=== PATIENT | female | born 1945 | race Caucasian/White ===

== ENCOUNTER → 2018-01-05 | Outpatient (CLI) | payer OTHER ==
[~2018-01-05] MED LIST: ACET325T14 PO; ATOR10TA PO; LEVO100T5 PO; LORA0.5T PO; ROLAIDS; TRIA1TAB3 PO; VENL75CA PO
== END | disposition home or self-care (01) ==
LOC: CFH 13:24
PROVIDERS: ATTEND Surgery
DX: C77.3 Secondary and unspecified malignant neoplasm of axilla and upper limb lymph nodes (principal); C50.911 Malignant neoplasm of unspecified site of right female breast
CPT/HCPCS: 77065

== ENCOUNTER → 2018-02-08 | Outpatient (CLI) | payer OTHER ==
[~2018-02-08] MED LIST changes: +ONDA8TAB9 PO; +PROC10TA78 PO; +emla cream TP
[2018-02-08 11:23] LABS: ALBUMIN 3.4 g/dL (3.4-5.0); ANION GAP 7 mmol/L (5-15); CALCIUM 9.5 mg/dL (8.5-10.1); CHLORIDE 106 mmol/L (98-107)
[2018-02-08 11:27] LABS: ALANINE AMINOTRANSFERASE 42 U/L (12-78); ALKALINE PHOSPHATASE 90 U/L (45-117); BILIRUBIN,TOTAL 0.8 mg/dL (0.2-1.0); CREATININE 0.79 mg/dL (0.55-1.02); TOTAL PROTEIN 6.7 g/dL (6.4-8.2)
== END | disposition home or self-care (01) ==
LOC: STAR 09:59
PROVIDERS: ATTEND Surgery
DX: Z01.812 Encounter for preprocedural laboratory examination (principal); I45.10 Unspecified right bundle-branch block
CPT/HCPCS: 36415; 80053; 93005

== ENCOUNTER 2018-02-15 06:12 | Day surgery (SDC) | payer OTHER ==
[~2018-02-15] VITALS: Ht 165.1 cm; Wt 90.7 kg
[2018-02-15] MEDS ORDERED: LACTATED RINGERS 1,000 ML IV SCH (06:47)
[2018-02-15] MEDS ORDERED: GABAPENTIN 300 MG CAPSULE PO ONE (07:00)
[2018-02-15] MEDS ORDERED: ACETAMINOPHEN 500 MG TABLET PO ONE (07:00)
[2018-02-15] MEDS ORDERED: SCOPOLAMINE PATCH, 1.5MG PATCH.TD72 TD ONE (07:00)
[2018-02-15] MEDS ORDERED: ONDANSETRON ODT 8 MG PO ONE (07:00)
[2018-02-15] MEDS ORDERED: ISOSULFAN BLUE 10 MG/ML, 5ML IV ONE (07:04)
[2018-02-15] MEDS ORDERED: BUPIVACAINE/PF-EPI 0.5% 1:200K ONE (07:04)
[2018-02-15 07:10] VITALS: BP 113/75
[2018-02-15] MEDS ORDERED: MIDAZOLAM 1 MG/ML, 2ML ONE (08:04)
[2018-02-15] MEDS ORDERED: FENTANYL PF 250 MCG/5ML ONE (08:04)
[2018-02-15] MEDS ORDERED: DEXAMETHASONE 4 MG/ML, 1ML ONE (08:58)
[2018-02-15] MEDS ORDERED: PROPOFOL 10 MG/ML, 20ML ONE (09:05)
[2018-02-15] MEDS ORDERED: CEFAZOLIN 1,000 MG ONE ×2 (09:05)
[2018-02-15] MEDS ORDERED: ROCURONIUM 10MG/ML,5ML ONE (09:05)
[2018-02-15] MEDS ORDERED: OXYcodone 5 MG/5 ML ORAL.SOL UDC PO PRN (10:00)
[2018-02-15] MEDS ORDERED: FENTANYL PF 100 MCG/2ML IV PRN (10:00)
[2018-02-15] MEDS ORDERED: HYDROmorphone 2 MG/ML, 1ML IV PRN (10:00)
[2018-02-15] MEDS ORDERED: LABETALOL 5MG/ML, 20ML IV PRN (10:00)
[2018-02-15] MEDS ORDERED: hydrALAzine 20 MG/ML, 1ML IV PRN (10:00)
[2018-02-15] MEDS ORDERED: MEPERIDINE/PF 25MG/0.5ML IVPush PRN (10:00)
[2018-02-15] MEDS ORDERED: PROMETHAZINE 25 MG/ML, 1ML IV PRN (10:00)
[2018-02-15] MEDS ORDERED: ONDANSETRON 2MG/ML, 2ML IV PRN (10:00)
[2018-02-15] MEDS ORDERED: NEOSTIGMINE 1 MG/ML, 10ML ONE (11:40)
[2018-02-15] MEDS ORDERED: GLYCOPYRROLATE 0.4 MG/2 ML, 2ML ONE (11:41)
[2018-02-15] MEDS ORDERED: NEOSTIGMINE 1 MG/ML, 10ML IV ONE (12:00)
[2018-02-15] MEDS ORDERED: GLYCOPYRROLATE 0.2MG/1ML, 5ML IVPush ONE (12:00)
== END 2018-02-15 16:30 | disposition home or self-care (01) ==
LOC: OUT 06:12
PROVIDERS: ATTEND Surgery
DX: C50.911 Malignant neoplasm of unspecified site of right female breast (principal); F41.9 Anxiety disorder, unspecified; E78.5 Hyperlipidemia, unspecified; E03.9 Hypothyroidism, unspecified; Z87.39 Personal history of other diseases of the musculoskeletal system and connective tissue; Z79.899 Other long term (current) drug therapy; Z98.890 Other specified postprocedural states; Z85.850 Personal history of malignant neoplasm of thyroid; Z72.89 Other problems related to lifestyle
CPT/HCPCS: 19303; 38525; 38792; 76098; 88305; 88307; 88309; A9541; C1729; J0690; J1100; J2250; J2704; J2710; J3010; J3490; J7120; Q0162

== ENCOUNTER → 2018-03-08 | Outpatient (CLI) | payer OTHER | END | disposition home or self-care (01) | LOC: ROC 09:51 | PROVIDERS: ATTEND Radiology Radiation Oncology | DX: C50.911 Malignant neoplasm of unspecified site of right female breast (principal); Z85.3 Personal history of malignant neoplasm of breast; Z90.11 Acquired absence of right breast and nipple | CPT/HCPCS: 99214; G0463 ==

== ENCOUNTER → 2018-03-23 | Outpatient (CLI) | payer OTHER ==
[~2018-03-23] MED LIST changes: +OMNIPAQUE 350 MG/ML, 75ML BOTTLE ONE
[2018-03-23 13:30] LABS: CREATININE 0.71 mg/dL (0.55-1.02)
== END | disposition home or self-care (01) ==
LOC: RAD 12:49
PROVIDERS: ATTEND Internal Medicine Hematology & Oncology
DX: R91.1 Solitary pulmonary nodule (principal); R22.2 Localized swelling, mass and lump, trunk; C50.411 Malignant neoplasm of upper-outer quadrant of right female breast; Z90.11 Acquired absence of right breast and nipple
CPT/HCPCS: 36415; 71260; 82565; Q9967

== ENCOUNTER → 2018-04-10 | Outpatient (CLI) | payer OTHER ==
[~2018-04-10] MED LIST changes: -OMNIPAQUE 350 MG/ML, 75ML BOTTLE ONE
== END | disposition home or self-care (01) ==
LOC: CFH 09:56
PROVIDERS: ATTEND Internal Medicine Hematology & Oncology
DX: Z13.820 Encounter for screening for osteoporosis (principal); M85.88 Other specified disorders of bone density and structure, other site; C50.411 Malignant neoplasm of upper-outer quadrant of right female breast
CPT/HCPCS: 77080

== ENCOUNTER → 2018-05-28 | Outpatient (CLI) | payer OTHER | END | disposition home or self-care (01) | LOC: EDSTATUS 05-27 13:06 → ROC 07:55 | PROVIDERS: ATTEND Radiology Radiation Oncology | DX: Z08 Encounter for follow-up examination after completed treatment for malignant neoplasm (principal); C50.911 Malignant neoplasm of unspecified site of right female breast | CPT/HCPCS: 99213; G0463 ==

== ENCOUNTER → 2018-08-02 | Outpatient (CLI) | payer MEDICARE, OTHER | END | disposition home or self-care (01) | LOC: ROC 07:24 | PROVIDERS: ATTEND Radiology Radiation Oncology | DX: Z08 Encounter for follow-up examination after completed treatment for malignant neoplasm (principal); C50.911 Malignant neoplasm of unspecified site of right female breast | CPT/HCPCS: 99213; G0463 ==

== ENCOUNTER → 2018-09-26 | Outpatient (CLI) | payer MEDICARE | END | disposition home or self-care (01) | LOC: PETCFH 08:51 | PROVIDERS: ATTEND Internal Medicine Hematology & Oncology | DX: C50.411 Malignant neoplasm of upper-outer quadrant of right female breast (principal) | CPT/HCPCS: 78306; A9503 ==

== ENCOUNTER 2018-10-01 12:05 | Outpatient (CLI) | payer MEDICARE ==
[2018-10-01] MEDS ORDERED: OMNIPAQUE 350 MG/ML, 100ML BOTTLE ONE (15:22)
== END 2018-10-01 23:59 | disposition home or self-care (01) ==
LOC: CFH 12:05
PROVIDERS: ATTEND Internal Medicine Hematology & Oncology
DX: C50.411 Malignant neoplasm of upper-outer quadrant of right female breast (principal); E78.5 Hyperlipidemia, unspecified; M47.814 Spondylosis without myelopathy or radiculopathy, thoracic region; M25.811 Other specified joint disorders, right shoulder; R91.1 Solitary pulmonary nodule; Z79.899 Other long term (current) drug therapy
CPT/HCPCS: 71260; 74177; 93306; Q9967

== ENCOUNTER 2018-10-25 11:13 | Observation (INO) | payer MEDICARE ==
[~2018-10-25] VITALS: Ht 167.6 cm; Wt 84.6 kg
[2018-10-25] MEDS ORDERED: ANAS1TAB PO (11:23)
[2018-10-25] MEDS ORDERED: ONDANSETRON 2MG/ML, 2ML ONE ×2 (11:24→13:53)
[2018-10-25] MEDS ORDERED: HYDROmorphone 2 MG/ML, 1ML ONE (11:25)
[2018-10-25] MEDS: HYDROmorphone 2 MG/ML, 1ML IVPush PRN ×2 (11:28→11:57)
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
--- NOTE | 2018-10-25 11:45 | NUR ---
xr to bs
--- NOTE | 2018-10-25 11:59 | NUR ---
PT MEDICATED X2 FOR PAIN. 2LNC PLACED, ALTHOUGH THERE WAS NO DECREASE IN O2 SAT. PT STATES PAIN REMAINS 10/10. VSS. EDMD PRESENT TO BS TO UPDATE ON POC. PLAN FOR PROCEDURAL SEDATION AND REDUCTION.
[2018-10-25] MEDS ORDERED: ONDANSETRON 2MG/ML, 2ML IVPush ONE ×2 (12:00→14:00)
[2018-10-25] MEDS ORDERED: SODIUM CHLORIDE FLUSH 10ML SYR IVF ONE (12:00)
[2018-10-25] MEDS ORDERED: PROPOFOL 10 MG/ML, 20ML ONE (12:03)
--- NOTE | 2018-10-25 13:07 | NUR ---
SUCCESSFUL CLOSED REDUCTION OF LEFT SHOULDER COMPLETE. REDUCTION VERIFIED BY XR. PT TOLERATED WELL. VS REMAINED STABLE THROUGHOUT PROCEDURE. VSS AT THIS TIME. PLAN TO DC WHEN PT IS ABLE.
[2018-10-25] MEDS ORDERED: PROPOFOL 10 MG/ML, 20ML IVPush ONE (13:30)
--- NOTE | 2018-10-25 13:58 | NUR ---
PT STATES NAUSEA WITH VOMITTING. EDMD NOTIFIED. ORDERS RECEVIED. PT MEDICATED PER JUL. VSS. NO NEEDS EXPRESSED. PT RESTING WTIH EYES CLOSED AT THIS TIME. WILL DC WHEN ABLE.
--- NOTE | 2018-10-25 14:50 | NUR ---
VSS. NO NEEDS EXPRESSED. PT RESTING WTIH EYES CLOSED AT THIS TIME. WILL DC WHEN ABLE.
[2018-10-25] MEDS ORDERED: PROMETHAZINE 25 MG/ML, 1ML ONE (15:45)
--- NOTE | 2018-10-25 15:49 | NUR ---
ATTEMPTED TO DC PT. PT UNABLE TO SIT UP WITHOUT N/V. EDMD NOTIFIED. NEW ORDERS RECEIVED AND MEDS ADMINISTERED. PT RESTING IN ROOM. VSS. NO NEEDS EXPRESSED. CALL LIGHT WITHIN REACH.
[2018-10-25] MEDS ORDERED: PROMETHAZINE 25 MG/ML, 1ML IM ONE (16:00)
--- NOTE | 2018-10-25 17:25 | NUR ---
PT RESTING IN ROOM. STILL REQUIRING SUPPLEMENTAL O2 TO KEEP O2 SAT >93%. ALL OTHER VSS. EXTENSIVE DISCUSSION WTIH PT REGARDING ADMIT. PT AGREES TO ADMIT AT THIS TIME.
[2018-10-25 18:23] LABS: BASOPHILS # (AUTO) 0.02 x10^3/uL (0-0.1); BASOPHILS % (AUTO) 0 % (0-1); EOSINOPHILS % (AUTO) 0 % (1-7); LYMPHOCYTES # (AUTO) 0.53 x10^3/uL (1-3.4); LYMPHOCYTES % (AUTO) 10 % (22-44); MD NO; MEAN CORPUSCULAR HEMOGLOBIN 30.7 pg (27.0-34.8); MEAN CORPUSCULAR HGB CONC 32.9 g/dL (32.4-35.8); MEAN CORPUSCULAR VOLUME 93.3 fL (80-100); MEAN PLATELET VOLUME 6.2 fL (7.4-10.4); MONOCYTES # (AUTO) 0.16 x10^3/uL (0.2-0.8); MONOCYTES % (AUTO) 3 % (2-9); NEUTROPHILS # (AUTO) 4.51 x10^3/uL (1.8-6.8); NEUTROPHILS % (AUTO) 87 % (42-75); PLATELET COUNT 196 x10^3/uL (130-400); RED BLOOD COUNT 3.99 x10^6/uL (3.82-5.3); RED CELL DISTRIBUTION WIDTH 14.1 % (9.6-15.2)
[2018-10-25] MEDS ORDERED: BISACODYL 10 MG SUPP PR PRN (18:30)
[2018-10-25] MEDS ORDERED: ONDANSETRON ODT 4 MG PO PRN (18:30)
[2018-10-25] MEDS ORDERED: POLYETHYLENE GLYCOL 17 GM PACKET PO PRN (18:30)
[2018-10-25] MEDS ORDERED: ACETAMINOPHEN 325 MG TABLET PO PRN (18:30)
[2018-10-25 18:33] LABS: ALBUMIN 3.5 g/dL (3.4-5.0); ANION GAP 8 mmol/L (5-15); CALCIUM 8.6 mg/dL (8.5-10.1); CHLORIDE 108 mmol/L (98-107); CREATININE 0.64 mg/dL (0.55-1.02)
[2018-10-25] MEDS: SODIUM CHLORIDE 0.9% 1,000 ML IV SCH (19:21)
[2018-10-25 20:09] VITALS: BP 115/61
[2018-10-25 20:17] VITALS: BP 115/61
[2018-10-25] MEDS ORDERED: ATORVASTATIN 10 MG TABLET PO SCH (21:00)
[2018-10-25] MEDS ORDERED: ANASTROZOLE 1 MG TABLET PO SCH (21:30)
[2018-10-26 01:28] VITALS: BP 115/63
[2018-10-26 07:28] VITALS: BP 113/67
[2018-10-26] MEDS: SODIUM CHLORIDE 0.9% 1,000 ML IV SCH (08:17)
[2018-10-26] MEDS ORDERED: LEVOTHYROXINE 100 MCG TABLET PO SCH (09:00)
[2018-10-26] MEDS ORDERED: TRIAMTERENE-HCTZ 37.5/25 MG TABLET PO SCH (09:00)
[2018-10-26] MEDS ORDERED: SENNA/DOCUSATE TABLET PO SCH (09:00)
[2018-10-26] MEDS ORDERED: ANASTROZOLE 1 MG TABLET PO SCH (09:00)
[2018-10-26] MEDS ORDERED: VENLAFAXINE 75 MG CAP ER PO SCH (09:00)
[2018-10-26 14:37] VITALS: BP 143/92
== END 2018-10-26 15:46 | disposition home or self-care (01) ==
LOC: ED 13:10 → INTOOBSV 17:41 → EDIP 17:41 → 3NE 18:21 → DCLOUNGE 10-26 15:20
PROVIDERS: ADMIT Internal Medicine; ATTEND Internal Medicine
DX: S43.015A Anterior dislocation of left humerus, initial encounter (principal); S43.035A Inferior dislocation of left humerus, initial encounter; I50.32 Chronic diastolic (congestive) heart failure; E78.5 Hyperlipidemia, unspecified; E03.9 Hypothyroidism, unspecified; W01.0XXA Fall on same level from slipping, tripping and stumbling without subsequent striking against object, initial encounter; Y93.9 Activity, unspecified; Y92.003 Bedroom of unspecified non-institutional (private) residence as the place of occurrence of the external cause; Z85.3 Personal history of malignant neoplasm of breast; Z92.21 Personal history of antineoplastic chemotherapy; Z90.11 Acquired absence of right breast and nipple
CPT/HCPCS: 23655; 36415; 71045; 73020; 73030; 80048; 82040; 85025; 96361; 96372; 96374; 96375; 96376; 97162; 97166; 99285; G0378; J1170; J2405; J2550; J2704; J7030

== ENCOUNTER → 2019-03-28 | Outpatient (CLI) | payer MEDICARE ==
[~2019-03-28] MED LIST changes: +ANAS1TAB PO; +LEVO75TA5 PO
== END | disposition home or self-care (01) ==
LOC: STAR 10:18
PROVIDERS: ATTEND Surgery
DX: Z01.812 Encounter for preprocedural laboratory examination (principal); C50.811 Malignant neoplasm of overlapping sites of right female breast; R94.31 Abnormal electrocardiogram [ECG] [EKG]
CPT/HCPCS: 93005

== ENCOUNTER 2019-04-04 09:28 | Day surgery (SDC) | payer MEDICARE ==
[~2019-04-04] VITALS: Ht 167.6 cm; Wt 83.3 kg
[~2019-04-04 09:28] MED LIST changes: +BUPIVACAINE/PF 0.5% ONE
[2019-04-04] MEDS ORDERED: LACTATED RINGERS 1,000 ML IV SCH ×3 (09:45→16:00)
[2019-04-04 09:59] VITALS: BP 116/67
[2019-04-04] MEDS ORDERED: ACETAMINOPHEN 500 MG TABLET PO ONE (10:00)
[2019-04-04] MEDS ORDERED: ONDANSETRON ODT 8 MG PO ONE (10:00)
[2019-04-04] MEDS ORDERED: GABAPENTIN 300 MG CAPSULE PO ONE (10:00)
[2019-04-04] MEDS ORDERED: MIDAZOLAM 1 MG/ML, 2ML ONE (11:04)
[2019-04-04] MEDS ORDERED: FENTANYL PF 250 MCG/5ML ONE (11:04)
[2019-04-04] MEDS ORDERED: PROPOFOL 50 ML ONE ×3 (11:04→13:07)
[2019-04-04] MEDS ORDERED: CEFAZOLIN 1,000 MG ONE (11:34)
[2019-04-04] MEDS ORDERED: PROPOFOL 10 MG/ML, 20ML ONE (11:45)
[2019-04-04] MEDS ORDERED: SUCCINYLCHOLINE 20 MG/ML, 10ML ONE (11:47)
[2019-04-04] MEDS ORDERED: ONDANSETRON 2MG/ML, 2ML ONE (11:48)
[2019-04-04] MEDS ORDERED: DEXAMETHASONE 4 MG/ML, 1ML ONE (11:48)
[2019-04-04] MEDS ORDERED: DIAZEPAM 5 MG/ML, 2ML IVPush PRN (12:00)
[2019-04-04] MEDS ORDERED: ONDANSETRON 2MG/ML, 2ML IV PRN (12:00)
[2019-04-04] MEDS ORDERED: OXYcodone 5 MG/5 ML ORAL.SOL UDC PO PRN (12:00)
[2019-04-04] MEDS ORDERED: FENTANYL PF 100 MCG/2ML IV PRN (12:00)
[2019-04-04] MEDS ORDERED: MIDAZOLAM 1 MG/ML, 2ML IV PRN (12:00)
[2019-04-04] MEDS ORDERED: hydrALAzine 20 MG/ML, 1ML IV PRN (12:00)
[2019-04-04] MEDS ORDERED: HYDROmorphone 2 MG/ML, 1ML IVPush PRN (12:00)
[2019-04-04] MEDS ORDERED: PROMETHAZINE 25 MG/ML, 1ML IV PRN (12:00)
[2019-04-04] MEDS ORDERED: ONDANSETRON ODT 8 MG PO PRN (12:00)
[2019-04-04] MEDS ORDERED: EPHEDRINE 50 MG/ML, 1ML IM PRN (12:00)
[2019-04-04] MEDS ORDERED: DIPHENHYDRAMINE 50 MG/ML, 1ML IVPush PRN (12:00)
[2019-04-04] MEDS ORDERED: EPHEDRINE 50 MG/ML, 1ML IVPush PRN (12:00)
[2019-04-04] MEDS ORDERED: METOPROLOL 1 MG/ML, 5ML IV PRN (12:00)
[2019-04-04] MEDS ORDERED: SUGAMMADEX 200 MG/2 ML IVPush ONE (13:37)
[2019-04-04] MEDS ORDERED: PROPOFOL 100 ML IV ONE (14:49)
[2019-04-04] MEDS ORDERED: PROPOFOL 100 ML IV PRN (15:00)
[2019-04-04 15:22] LABS: BASOPHILS # (AUTO) 0.01 x10^3/uL (0-0.1); BASOPHILS % (AUTO) 0 % (0-1); EOSINOPHILS # (AUTO) 0.02 x10^3/uL (0-0.4); EOSINOPHILS % (AUTO) 0 % (1-7); LYMPHOCYTES # (AUTO) 0.78 x10^3/uL (1-3.4); LYMPHOCYTES % (AUTO) 12 % (22-44); MD NO; MEAN CORPUSCULAR HEMOGLOBIN 30.7 pg (27.0-34.8); MEAN CORPUSCULAR HGB CONC 32.9 g/dL (32.4-35.8); MEAN CORPUSCULAR VOLUME 93.4 fL (80-100); MEAN PLATELET VOLUME 6.2 fL (7.4-10.4); MONOCYTES # (AUTO) 0.04 x10^3/uL (0.2-0.8); MONOCYTES % (AUTO) 1 % (2-9); NEUTROPHILS # (AUTO) 5.93 x10^3/uL (1.8-6.8); NEUTROPHILS % (AUTO) 88 % (42-75); PLATELET COUNT 211 x10^3/uL (130-400); RED BLOOD COUNT 3.86 x10^6/uL (3.82-5.3); RED CELL DISTRIBUTION WIDTH 13.1 % (9.6-15.2)
[2019-04-04 15:28] LABS: ALANINE AMINOTRANSFERASE 45 U/L (12-78); ALBUMIN 3.3 g/dL (3.4-5.0); ANION GAP 9 mmol/L (5-15); CALCIUM 8.5 mg/dL (8.5-10.1); CHLORIDE 107 mmol/L (98-107); CREATININE 0.53 mg/dL (0.55-1.02)
[2019-04-04 15:30] LABS: ALKALINE PHOSPHATASE 145 U/L (45-117); BILIRUBIN,TOTAL 0.7 mg/dL (0.2-1.0); TOTAL PROTEIN 6.5 g/dL (6.4-8.2); TROPONIN I < 0.015 ng/mL (0.000-0.045)
[2019-04-04] MEDS ORDERED: ONDANSETRON 2MG/ML, 2ML IVPush PRN (15:30)
[2019-04-04 15:40] LABS: INTERNATIONAL NORMALIZED RATIO 0.98 (0.93-1.1); PROTHROMBIN TIME 10.3 Seconds (9.6-11.5)
[2019-04-04] MEDS ORDERED: LACTULOSE 20 GM/30 ML UDC NG PRN (16:00)
[2019-04-04] MEDS ORDERED: SENNA 176 MG/5 ML ORAL SOL NG PRN (16:00)
[2019-04-04] MEDS ORDERED: GLUCAGON 1 MG IM PRN (16:00)
[2019-04-04] MEDS ORDERED: LORazepam 2 MG/ML, 1ML IVPush PRN (16:00)
[2019-04-04] MEDS ORDERED: ALBUTEROL/IPRATROPIUM 2.5MG/0.5MG, 3 ML INLINE SCH (16:00)
[2019-04-04] MEDS ORDERED: HEPARIN 5,000 UNITS/ML, 1ML SQ SCH (16:00)
[2019-04-04] MEDS ORDERED: HALOPERIDOL 5 MG/ML IVPush PRN (16:00)
[2019-04-04] MEDS ORDERED: PHARMACY MAY ADJ FOR RENAL FX MC SCH (16:00)
[2019-04-04] MEDS ORDERED: DEXTROSE 4 GM TAB.CHEW PO PRN (16:00)
[2019-04-04] MEDS ORDERED: INSULIN LISPRO 100 UNITS/ML, PEN SQ-INSULIN SCH (16:00)
[2019-04-04] MEDS ORDERED: SODIUM CHLORIDE 0.9% 1,000 ML IV SCH (16:00)
[2019-04-04] MEDS ORDERED: SENNA/DOCUSATE TABLET NG PRN (16:00)
[2019-04-04] MEDS ORDERED: FAMOTIDINE 20 MG/2 ML IV SCH (16:00)
[2019-04-04] MEDS ORDERED: MORPHINE SULFATE 4 MG/ML, 1ML IVPush PRN (16:00)
[2019-04-04] MEDS ORDERED: DEXTROSE 50%, 50ML SYRINGE IVPush PRN (16:00)
[2019-04-04] MEDS ORDERED: BISACODYL 10 MG SUPP PR PRN (16:00)
[2019-04-04] MEDS ORDERED: SODIUM CHLORIDE FLUSH 10ML SYR IVF SCH (21:00)
== END 2019-04-04 18:15 | disposition home or self-care (01) ==
LOC: OUT 09:28 → CCU 14:26 → UNDOADMIN 15:32 → OUT 15:32 → CCU 15:32 → OUT 18:15 → UNDODISIN 18:15
PROVIDERS: ATTEND Surgery
DX: N65.1 Disproportion of reconstructed breast (principal); E78.5 Hyperlipidemia, unspecified; E03.9 Hypothyroidism, unspecified; Z79.01 Long term (current) use of anticoagulants; Z79.890 Hormone replacement therapy; Z79.899 Other long term (current) drug therapy; Z85.3 Personal history of malignant neoplasm of breast; Z90.11 Acquired absence of right breast and nipple; Z92.21 Personal history of antineoplastic chemotherapy; Z98.51 Tubal ligation status; Z98.890 Other specified postprocedural states
CPT/HCPCS: 19303; 19380; 36600; 71045; 80053; 82803; 83605; 84484; 85025; 85610; 85730; 87070; 87081; 87205; 88305; 88307; 94002; C1729; J0330; J0690; J1100; J2250; J2405; J2704; J3010; J7120; Q0162; G0378

== ENCOUNTER → 2019-06-15 | Outpatient (CLI) | payer MEDICARE ==
[~2019-06-15] MED LIST changes: -BUPIVACAINE/PF 0.5% ONE
== END | disposition home or self-care (01) ==
LOC: RAD 12:55
PROVIDERS: ATTEND Physician Assistant
DX: M47.817 Spondylosis without myelopathy or radiculopathy, lumbosacral region (principal); M16.11 Unilateral primary osteoarthritis, right hip; M17.11 Unilateral primary osteoarthritis, right knee
CPT/HCPCS: 72100; 72190

== ENCOUNTER → 2020-04-16 | Outpatient (CLI) | payer MEDICARE | END | disposition home or self-care (01) | LOC: CFH 09:35 | PROVIDERS: ATTEND Internal Medicine Hematology & Oncology | DX: C50.411 Malignant neoplasm of upper-outer quadrant of right female breast (principal); M85.89 Other specified disorders of bone density and structure, multiple sites; M85.80 Other specified disorders of bone density and structure, unspecified site | CPT/HCPCS: 77080 ==